=== PATIENT | male | born 1980 | race Caucasian/White ===

== ENCOUNTER 2025-09-17 06:24 | Day surgery (SDC) | payer OTHER, SELFPAY | END 2025-09-17 11:16 | disposition home or self-care (01) | LOC: GI 06:24 | PROVIDERS: ATTENDING PHYSICIAN Student in an Organized Health Care Education/Training Program | DX: Z12.11 Encounter for screening for malignant neoplasm of colon (principal); D12.2 Benign neoplasm of ascending colon | CPT/HCPCS: 45385; 88305 ==